=== PATIENT | male | born 1950 | race Caucasian/White ===

== ENCOUNTER → 2025-01-14 14:13 | Outpatient (REF) | payer OTHER, SELFPAY | LOC: RAD 14:13 | PROVIDERS: ATTENDING PHYSICIAN Internal Medicine Cardiovascular Disease; FAMILY PHYSICIAN Family Medicine | DX: I10 Essential (primary) hypertension (principal); I77.1 Stricture of artery | CPT/HCPCS: 93923; 93930 ==